=== PATIENT | male | born 1960 | race American Indian/Alaskan Native ===

== ENCOUNTER 2016-03-23 20:17 | Inpatient (IN) | payer OTHER ==
--- NOTE | 2016-03-23 20:42 | Emergency Department Report ---
Stated Complaint: STROKE SYMPTOMS Time Seen by Provider: 03/23/16 20:31 - HPI History of Present Illness: 60-year-old male comes in for complaint of slurred speech not able to get his thoughts together weakness since last night. Patient had a history of CVA 2015 which he recovered mostly with his functionality. Patient is awake he is alert and appropriate answering questions but not able to get the answers out totally he appears to have a hard time finding the words. He is accompanied by his caregiver that's helping with the history. - Exam Physical Exam: Patient is alert not very oriented slurred speech not able to follow commands tongue protrusion intact tongue side to side intact not able to do heel to morales right side is very weak. Romberg's intact not able to follow finger to nose MSE screening note: Focused history and physical exam performed. Due to findings the following was ordered: She's been evaluated by this provider. Ordered a CT of the brain without contrast [facility] ED Disposition for MSE Condition: Stable
[2016-03-23 21:13] LABS: Hematocrit 38.8 % (35.5-45.6); Hemoglobin 12.4 gm/dl (11.8-15.2); Mean Corpuscular HGB Conc 32 % (32-34); Mean Corpuscular Hemoglobin 24 pg (28-32); Mean Corpuscular Volume 74 fl (84-94); Platelet Count 200 K/mm3 (140-440); Red Blood Count 5.26 M/mm3 (3.65-5.03); Red Cell Distribution Width 20.1 % (13.2-15.2); White Blood Count 9.5 K/mm3 (4.5-11.0)
[2016-03-23 21:24] LABS: Anion Gap 19 mmol/L; Blood Urea Nitrogen 16 mg/dL (9-20); Calcium 9.1 mg/dL (8.4-10.2); Carbon Dioxide 24 mmol/L (22-30); Chloride 101.9 mmol/L (98-107); Glucose 99 mg/dL (75-100); Potassium 3.8 mmol/L (3.6-5.0); Sodium 141 mmol/L (137-145)
--- NOTE | 2016-03-23 22:16 | Cat Scan Report ---
FINAL REPORT PROCEDURE: CT HEAD/BRAIN WO CON TECHNIQUE: Computerized tomography of the head was performed without contrast material. HISTORY: slurred speech RUFF balance is off COMPARISON: 01/04/2016 FINDINGS: Skull and scalp: Normal. Paranasal sinuses: Normal. Ventricles and subarachnoid spaces: There is mild central and cortical atrophy.. Cerebrum: No evidence of hemorrhage, acute infarction or mass. There encephalomalacia in the right frontal and temporal lobes consistent with old infarct. There is no acute infarct. There is chronic deep white matter ischemic gliosis in the right hemisphere. Cerebellum and brainstem: No evidence of hemorrhage, acute infarction or mass. Vasculature: Normal. Comments: None. IMPRESSION: There are chronic changes as described. There is no acute abnormality.
[2016-03-24] MEDS ORDERED: BABY ASPIRIN PO ONE (04:03)
--- NOTE | 2016-03-24 04:03 | Emergency Department Report ---
HPI - General Chief Complaint: Neuro Symptoms/Deficit Time Seen by Provider: 03/23/16 20:31 - HPI HPI: This is a 55-year-old Afro-[place] male who presents to the emergency department with complaint of slurred speech, right-sided weakness, some aphasia and/or confusion since Tuesday evening. The patient's is bedside and said she noticed this and they thought about coming to the emergency department at that time but instead they decided to see if it would resolve and went to bed. When they woke up Tuesday and the patient still had the symptoms they came in to be seen. Patient has a history of hypertension and a previous history of CVA in March 2014. The stroke at that time left him with some left -sided weakness and memory loss but otherwise the patient is normally ambulatory. The right side has been the patient stronger side until this all began. He has not taken anything for symptoms prior to presentation. No recent travel or sick contacts at home. He has been complaining of a headache. He denies any chest pain, shortness of breath, fever, nausea or vomiting. ED Past Medical Hx - Past Medical History Hx Hypertension: Yes Hx CVA: Yes Hx Congestive Heart Failure: No Hx Diabetes: No Hx Asthma: No - Surgical History Additional Surgical History: carotid endarectomy - Social History Smoking Status: Unknown if ever smoked - Medications Home Medications: Home Medications Medication Instructions Recorded Confirmed Last Taken Type Lisinopril [Zestril TAB] 20 mg PO QDAY 01/04/16 03/24/16 03/23/16 History ED Review of Systems ROS: Stated complaint: STROKE SYMPTOMS Other details as noted in HPI Comment: All other systems reviewed and negative Constitutional: denies: chills, fever Eyes: denies: eye pain, eye discharge, vision change ENT: denies: ear pain, throat pain Respiratory: denies: cough, shortness of breath, wheezing Cardiovascular: denies: chest pain, palpitations Gastrointestinal: denies: abdominal pain, nausea, diarrhea Genitourinary: denies: urgency, dysuria Musculoskeletal: denies: back pain, joint swelling, arthralgia Skin: denies: rash, lesions Neurological: headache, weakness, numbness, confusion Physical Exam - Physical Exam Vital Signs: Vital Signs 03/23/16 20:23 Temperature 98.1 F Pulse Rate 83 Respiratory 18 Rate Blood Pressure 164/108 O2 Sat by Pulse 98 Oximetry Physical Exam: GENERAL: The patient is well-developed well-nourished. HEENT: Normocephalic. Atraumatic. Extraocular motions are intact. Patient has moist mucous membranes. Pupils equal reactive to light bilaterally. Patient has a subconjunctival hemorrhage to the right lateral eye. No facial asymmetry. Tongue is midline. NECK: Supple. Trachea is midline. CHEST/LUNGS: Clear to auscultation. There is no respiratory distress noted. HEART/CARDIOVASCULAR: Regular. There is no tachycardia. There is no gallop rub or murmur. ABDOMEN: Abdomen is soft, nontender. Patient has normal bowel sounds. There is no abdominal distention. SKIN: There is no rash. There is no diaphoresis. NEURO: The patient is awake, alert, and oriented. The patient is cooperative. Patient appears to have some aphasia. He appears to know what he wants to say but has trouble getting out and appears frustrated by this. There is right upper extremity weakness when compared to the left. There is lower right extremity weakness when compared to the left. There is a mild right upper extremity pronator drift. MUSCULOSKELETAL: There is no tenderness or deformity. There is no evidence of acute injury. ED Course Vital Signs 03/23/16 20:23 Temperature 98.1 F Pulse Rate 83 Respiratory 18 Rate Blood Pressure 164/108 O2 Sat by Pulse 98 Oximetry ED Medical Decision Making - Lab Data Result diagrams: 03/23/16 20:54 03/23/16 20:54 - EKG Data -: EKG Interpreted by Wi EKG shows normal: sinus rhythm, axis, intervals, QRS complexes (LVH), ST-T waves (T wave inversions to the inferior and lateral leads) Rate: normal - EKG Data When compared to previous EKG there are: changes noted (new t wave inversions to the lateral leads) Interpretation: LVH (and T wave inversions to the inferior and lateral leads. ) - Radiology Data Radiology results: report reviewed CT of the head without contrast shows chronic changes but no acute abnormalities. There is encephalomalacia in the right frontal and temporal lobes consistent with old infarct. No acute infarct seen. There is chronic deep white matter ischemic gliosis in the right hemisphere. - Medical Decision Making 55-year-old male presents the emergency department with complaint of right- sided weakness, aphasia and slurred speech that began Tuesday evening. Patient did not come in until about 12 hours or so later and therefore is not a TPA candidate. On physical exam the patient does display some right-sided weakness when compared to the left side, some aphasia and some slurred speech. The patient appears frustrated as he feels like he knows what he wants to say but cannot get it out appropriately. There is no facial asymmetry. A CT of the head did not show any acute ischemic changes, brain bleed or any acute process but does show his previous right-sided infarcts. Patient also presents with some hypertensive urgency. He was given some hydralazine and his come down to a more reasonable level. Patient is labs do not show any significant abnormalities or at least any etiology of the patient's symptoms. EKG does not show any signs of ST elevation NC or dysrhythmia. Patient will be admitted to the hospital for further evaluation and has been accepted for admission by the hospitalist, Dr Aburto. - Differential Diagnosis CVA, TIA, Hypertensive Crisis, NC Critical Care Time: No Critical care attestation.: If time is entered above; I have spent that time in minutes in the direct care of this critically ill patient, excluding procedure time. ED Disposition Clinical Impression: Hypertensive urgency, Right sided weakness, Aphasia CVA (cerebral vascular accident) Qualifiers: CVA mechanism: unspecified Qualified Code(s): I63.9 - Cerebral infarction, unspecified Disposition: OP ADMITTED IP TO THIS HOSP Is pt being admited?: Yes Condition: Stable Referrals: PRIMARY CARE, [Primary Care Provider] - 3-5 Days Time of Disposition: 05:23
[2016-03-24 04:38] LABS: Alanine Aminotransferase 23 units/L (7-56); Albumin 4.1 g/dL (3.9-5); Albumin/Globulin Ratio 1.3 %; Alkaline Phosphatase 75 units/L (35-129); Bilirubin,Total 0.3 mg/dL (0.1-1.2); Creatine Kinase 103 units/L (55-170); Total Protein 7.3 g/dL (6.3-8.2)
[2016-03-24] MEDS ORDERED: APRESOLINE IV ONE (04:44)
[2016-03-24 04:55] LABS: Bilirubin,Direct < 0.2 mg/dL (0-0.2); Bilirubin,Indirect 0.1 mg/dL
[2016-03-24 06:48] LABS: Urine Drugs of Abuse Note Disclamer
[2016-03-24 07:05] LABS: Bilirubin,Urine NEG (Negative); Blood,Urine NEG (Negative); Ketones,Urine TR mg/dL (Negative); Leukocyte Esterase,Urine NEG (Negative); Mucus,Urine 2+ /HPF; Nitrite,Urine NEG (Negative); Protein,Urine <15 mg/dL mg/dL (Negative)
--- NOTE | 2016-03-24 08:53 | History and Physical Report ---
History of Present Illness Date of examination: 03/24/16 Date of admission: / Chief complaint: Left sided weakness for 1 week History of present illness: patient is 55-year-old with history of hypertension and previous stroke. He presents with right sided weakness and slurred speech for 1 day. On questioning he states he did not come earlier because he thought it would go away by itself. Patient denies any chest pain or shortness of breath. He has a history of previous stroke with residual left-sided weakness. In emergency department a CT head was done was negative for acute stroke. He is being admitted for further work up and management Past History Past Medical History: hypertension, stroke Past Surgical History: Other (right carotid endarterectomy about 2 years ago) Social history: single, smoking (Smoker for many years quit smoking one month ago), alcohol abuse (quit alcohol), full code Family history: hypertension Medications and Allergies Allergies Allergy/AdvReac Type Severity Reaction Status Date / Time No Known Allergies Allergy Unverified 08/25/15 13:41 Home Medications Medication Instructions Recorded Confirmed Last Taken Type Lisinopril [Zestril TAB] 20 mg PO QDAY 01/04/16 03/24/16 03/23/16 History Review of Systems All systems: negative (no chest pain, no headaches, no difficulty in swallowing , no change in speech,. All other systems reviewed and are negative) Exam - Constitutional Vitals: Temp Pulse Resp BP Pulse Ox 98.1 F 97 H 16 140/77 99 03/23/16 20:23 03/24/16 08:02 03/24/16 08:00 03/24/16 08:00 03/24/16 08:00 General appearance: Present: no acute distress - EENT Eyes: Present: PERRL, EOM intact ENT: hearing intact, clear oral mucosa - Neck Neck: Present: supple, normal ROM - Respiratory Respiratory effort: normal Respiratory: bilateral: CTA, negative: diminished, rales, rhonchi, wheezing - Cardiovascular Rhythm: regular Heart Sounds: Present: S1 & S2 (S1 and S2 regular, no murmurs rubs or gallops) - Extremities Extremities: no ischemia, No edema, normal temperature, normal color - Abdominal General gastrointestinal: Present: soft, non-tender, non-distended, normal bowel sounds - Integumentary Integumentary: Present: clear, warm, dry - Musculoskeletal Musculoskeletal: strength equal bilaterally - Psychiatric Psychiatric: appropriate mood/affect, intact judgment & insight - Neurologic Neurologic: other (awake alert oriented 3, left upper extremity weakness 4 out of 5, dysarthria) Results - Labs CBC & Chem 7: 03/23/16 20:54 03/23/16 20:54 Labs: Abnormal lab results 03/23/16 03/24/16 Range/Units 20:54 03:53 RBC 5.26 H (3.65-5.03) M/mm3 MCV 74 L (84-94) fl MCH 24 L (28-32) pg RDW 20.1 H (13.2-15.2) % Lactic Acid 0.4 L (0.7-2.0) mmol/L Assessment and Plan Acute ischemic stroke. He presents with slurred speech right-sided weakness likely has acute stroke. Admit to telemetry. CT head is negative. MRI has been ordered to rule out acute stroke. Aspirin given in emergency department. Willl do stroke workup including carotid Dopplers, echocardiogram, MRI and MRA. Hypertensive urgency. Blood pressure was 200/98. This is now improved with hydralazine. Resume lisinopril he was taking at home. History of stroke with residual left-sided weakness. History of right carotid endarterectomy DVT prophylaxis with Lovenox Full CODE STATUS
[2016-03-24] MEDS ORDERED: TYLENOL PO PRN (09:02)
[2016-03-24] MEDS ORDERED: MILK OF MAGNESIA PO PRN (09:02)
[2016-03-24] MEDS ORDERED: SODIUM CHLORIDE FLUSH SYRINGE 10 ML IV PRN (09:02)
[2016-03-24] MEDS ORDERED: DULCOLAX PR PRN (09:02)
[2016-03-24] MEDS ORDERED: ZOFRAN IV PRN (09:02)
--- NOTE | 2016-03-24 09:43 | Admit Criteria Form ---
Admission Criteria Documentation: STROKE: ISCHEMIC Clinical Indications for Admission to Inpatient Care (Place 'X' for any and all applicable criteria): Admission is indicated for ANY ONE of the following(1)(2)(3)(4): [X ]I. Acute stroke Extended stay beyond goal length of stay may be needed for(1)(2) [ ]a) Major deficit or clinical deterioration [ ]b) Hospital-acquired infection (eg, urinary tract infection, pneumonia) [ ]c) Embolic cause of stroke [ ]d) Venous thromboembolism(9) [ ]e) Seizures [ ]f) Bleeding (eg, cerebral) [ ]g) Increased intracranial pressure [ ]h) Comorbidities [ ]i) Surgical intervention The original [employer] content created by [employer] has been revised. The portions of the content which have been revised are identified through the use of italic text or in bold, and [facility] has neither reviewed nor approved the modified material. All other unmodified content is copyright [facility]. Please see references footnoted in the original [facility] edition 2016 Admission Criteria Met: Yes
[2016-03-24] MEDS ORDERED: ZESTRIL ONE ×2 (10:02→10:05)
[2016-03-24] MEDS: ZESTRIL PO SCH (10:08)
[2016-03-24] MEDS: LOVENOX SUB-Q SCH (17:54)
--- NOTE | 2016-03-24 20:04 | Magnetic Resonance Report ---
FINAL REPORT PROCEDURE: MRI brain without contrast. TECHNIQUE: Magnetic resonance imaging of the brain was performed without contrast material. HISTORY: Stroke. COMPARISON: CT head 03/23/2016. FINDINGS: There is motion artifact on many of the pulse sequences. There is some encephalomalacia in the right frontal and right temporal lobes. This is likely secondary to a previous stroke. There is mild cerebral atrophy. There is mild evidence of chronic ischemic white matter disease. There are no mass lesions. There is no intracranial hemorrhage. There are some curvilinear areas of restricted diffusion involving cortical sanchez matter. These are located posteriorly in the left frontal lobe and the left parietal lobe. There is a tiny amount of restricted diffusion in the cortex of the left temporal lobe. There is also some punctate restricted diffusion in the deep white matter of the left frontal lobe. These findings are consistent with small areas of acute ischemia. Clinical correlation is suggested. The mastoid air cells are clear. There is mild mucosal thickening in both maxillary sinuses. IMPRESSION: Probable old stroke in the right middle cerebral artery distribution. Small areas of acute infarction in the left frontal, parietal and temporal lobes as described.
--- NOTE | 2016-03-24 20:16 | Magnetic Resonance Report ---
FINAL REPORT PROCEDURE: Magnetic resonance angiogram of the head without contrast. TECHNIQUE: Axial 3-D [id number] MR angiography of the [place] of [place] and brain was performed. The source images were reconstructed in various views using maximum intensity projection. HISTORY: Stroke, right-sided weakness. COMPARISON: No prior studies are available for comparison. FINDINGS: Both distal internal carotid arteries are patent. Both middle cerebral arteries are patent. The A1 segment of the right anterior cerebral artery is not visible. The anterior communicating artery is patent and both anterior cerebral arteries fill through the left A1 segment. The left posterior communicating artery is patent. The right posterior communicating artery is not visible. Both distal vertebral arteries are patent. The right posterior inferior cerebellar artery is patent. The left PICA is not visible. The basilar artery is patent. The anterior inferior cerebellar arteries are not visible. Both superior cerebellar and both posterior cerebral arteries are patent. There are no signs of aneurysm disease. There is no definite vasculitis. There are no definite embolic occlusions. IMPRESSION: Patency of the major cerebral vessels. Absence of the right A1 segment. Nonvisualization of the left posterior inferior cerebellar artery and both anterior inferior cerebellar arteries.
[2016-03-25] MEDS: ZESTRIL PO SCH (10:04)
[2016-03-25] MEDS: ECOTRIN PO SCH (10:04)
[2016-03-25] MEDS: LOVENOX SUB-Q SCH (10:04)
--- NOTE | 2016-03-25 11:08 | Progress Note ---
Assessment and Plan Assessment and plan: 1. Acute ischemic CVA. He presents with slurred speech right-sided weakness. Cont. telemetry monitoring. CT head is negative. MRI pending. F/U carotid Dopplers, echocardiogram, MRI and MRA. Neuro consultation 2. Accelerated hypertension.patient Blood pressure was 200/98 in ER. This is now improved with hydralazine. Resume lisinopril he was taking at home. 3. History of stroke with residual left-sided weakness. 4. History of right carotid endarterectomy 5. DVT prophylaxis with Lovenox History Interval history: Patient still exhibits some residual weakness. No new complaints. Hospitalist Physical - Constitutional Vitals: Temp Pulse Resp BP Pulse Ox 98.0 F 62 18 159/73 98 03/25/16 08:58 03/25/16 08:58 03/25/16 08:58 03/25/16 08:58 03/25/16 08:58 General appearance: Present: no acute distress - EENT Eyes: Present: PERRL, EOM intact ENT: hearing intact, clear oral mucosa, dentition normal - Neck Neck: Present: supple, normal ROM - Respiratory Respiratory effort: normal Respiratory: bilateral: CTA - Cardiovascular Rhythm: regular Heart Sounds: Present: S1 & S2. Absent: gallop, rub - Extremities Extremities: no ischemia, No edema, Full ROM - Abdominal General gastrointestinal: soft, non-tender, non-distended, normal bowel sounds - Integumentary Integumentary: Present: clear, warm, dry - Neurologic Neurologic: CNII-XII intact, moves all extremities, other (right sided weakness) Results - Labs CBC & Chem 7: 03/23/16 20:54 03/23/16 20:54 Labs: Laboratory Last Values WBC 9.5 K/mm3 (4.5-11.0) 03/23/16 20:54 RBC 5.26 M/mm3 (3.65-5.03) H 03/23/16 20:54 Hgb 12.4 gm/dl (11.8-15.2) 03/23/16 20:54 Hct 38.8 % (35.5-45.6) 03/23/16 20:54 MCV 74 fl (84-94) L 03/23/16 20:54 MCH 24 pg (28-32) L 03/23/16 20:54 MCHC 32 % (32-34) 03/23/16 20:54 RDW 20.1 % (13.2-15.2) H 03/23/16 20:54 Plt Count 200 K/mm3 (140-440) 03/23/16 20:54 Sodium 141 mmol/L (137-145) 03/23/16 20:54 Potassium 3.8 mmol/L (3.6-5.0) 03/23/16 20:54 Chloride 101.9 mmol/L (98-107) 03/23/16 20:54 Carbon Dioxide 24 mmol/L (22-30) 03/23/16 20:54 Anion Gap 19 mmol/L 03/23/16 20:54 BUN 16 mg/dL (9-20) 03/23/16 20:54 Creatinine 1.0 mg/dL (0.8-1.5) 03/23/16 20:54 Estimated GFR > 60 ml/min 03/23/16 20:54 BUN/Creatinine Ratio 16.00 % 03/23/16 20:54 Glucose 99 mg/dL (75-100) 03/23/16 20:54 Lactic Acid 0.4 mmol/L (0.7-2.0) L 03/24/16 03:53 Calcium 9.1 mg/dL (8.4-10.2) 03/23/16 20:54 Total Bilirubin 0.3 mg/dL (0.1-1.2) 03/24/16 03:53 Direct Bilirubin < 0.2 mg/dL (0-0.2) 03/24/16 03:53 Indirect Bilirubin 0.1 mg/dL 03/24/16 03:53 AST 17 units/L (5-40) 03/24/16 03:53 ALT 23 units/L (7-56) 03/24/16 03:53 Alkaline Phosphatase 75 units/L (35-129) 03/24/16 03:53 Total Creatine Kinase 103 units/L (55-170) 03/24/16 03:53 Troponin T < 0.010 ng/mL (0.00-0.029) 03/24/16 09:33 Total Protein 7.3 g/dL (6.3-8.2) 03/24/16 03:53 Albumin 4.1 g/dL (3.9-5) 03/24/16 03:53 Albumin/Globulin Ratio 1.3 % 03/24/16 03:53 Triglycerides 58 mg/dL (2-149) 03/25/16 05:14 Cholesterol 162 mg/dL (50-199) 03/25/16 05:14 LDL Cholesterol Direct 116 mg/dL (50-130) 03/25/16 05:14 HDL Cholesterol 35 mg/dL (40-59) L 03/25/16 05:14 Cholesterol/HDL Ratio 4.62 % 03/25/16 05:14 TSH 3.020 mlU/mL (0.270-4.200) 03/24/16 03:53 Urine Color Yellow (Yellow) 03/24/16 06:14 Urine Turbidity Clear (Clear) 03/24/16 06:14 Urine pH 6.0 (5.0-7.0) 03/24/16 06:14 Ur Specific [place] 1.023 (1.003-1.030) 03/24/16 06:14 Urine Protein <15 mg/dl mg/dL (Negative) 03/24/16 06:14 Urine Glucose (UA) Neg mg/dL (Negative) 03/24/16 06:14 Urine Ketones Tr mg/dL (Negative) 03/24/16 06:14 Urine Blood Neg (Negative) 03/24/16 06:14 Urine Nitrite Neg (Negative) 03/24/16 06:14 Urine Bilirubin Neg (Negative) 03/24/16 06:14 Urine Urobilinogen 2.0 mg/dL (<2.0) 03/24/16 06:14 Ur Leukocyte Esterase Neg (Negative) 03/24/16 06:14 Urine WBC (Auto) 2.0 /HPF (0.0-6.0) 03/24/16 06:14 Urine RBC (Auto) 2.0 /HPF (0.0-6.0) 03/24/16 06:14 Urine Mucus 2+ /HPF 03/24/16 06:14 Urine Opiates Screen Presumptive negative 03/24/16 06:14 Urine Methadone Screen Presumptive negative 03/24/16 06:14 Ur Barbiturates Screen Presumptive negative 03/24/16 06:14 Ur Phencyclidine Scrn Presumptive negative 03/24/16 06:14 Ur Amphetamines Screen Presumptive negative 03/24/16 06:14 U Benzodiazepines Scrn Presumptive negative 03/24/16 06:14 Urine Cocaine Screen Presumptive negative 03/24/16 06:14 U Marijuana (THC) Screen Presumptive negative 03/24/16 06:14 Drugs of Abuse Note Disclamer 03/24/16 06:14 Plasma/Serum Alcohol < 0.01 gm% (0-0.07) 03/24/16 03:53
--- NOTE | 2016-03-25 13:13 | Echocardiography Report ---
Transthoracic Echocardiogram Indication: CVA BP: 117/67 HR: 56 Findings Procedure Info: The study quality is good. Left Ventricle: The left ventricular chamber size is normal. Mild to moderate concentric left ventricular hypertrophy is observed. Global left ventricular systolic function is normal. The estimated ejection fraction is 55-60%. Left Atrium: The left atrial chamber size is normal. Right Ventricle: The right ventricle wall thickness is mildly increased. The right ventricular cavity size is normal. The right ventricular global systolic function is normal. Right Atrium: The right atrial cavity size is normal. The interatrial septum bowed toward the left. A patent foramen ovale is not demonstrated with color doppler and agitated saline contrast. Aortic Valve: The aortic valve is trileaflet. The aortic valve leaflets are mildly thickened. There is no evidence of aortic regurgitation. There is no evidence of aortic stenosis. Mitral Valve: The mitral valve leaflets appear myxomatous. The mitral valve leaflets are mildly thickened. There is trace of mitral regurgitation. There is no evidence of mitral stenosis. Tricuspid Valve: The tricuspid valve leaflets are normal. There is mild tricuspid regurgitation. The right ventricular systolic pressure is calculated at 29 mmHg. There is evidence of borderline pulmonary hypertension. There is no tricuspid stenosis. Pulmonic Valve: The pulmonic valve is not well visualized. The pulmonic valve appears normal. There is no evidence of pulmonic regurgitation. There is no pulmonic stenosis. Pericardium: There is no pericardial effusion. No pleural effusion is present. Aorta: The aortic root is not well visualized. There is no dilatation of the aortic root. Pulmonary Artery: The main pulmonary artery is not well visualized. Venous: The inferior vena cava appears normal in size. There is a greater than 50% respiratory change in the inferior vena cava dimension. Measurements Chambers MM Name Value Normal Range IVSd (MM) 1.02 cm (0.6 - 1.1) LVPWd (MM) 1.32 cm (0.6 - 1.1) IVS:LVPW ratio 0.77 ratio - LVIDd (MM) 5.22 cm (3.7 - 5.6) LVIDs (MM) 3.06 cm (2 - 2.8) LV FS (Teichholz) (MM) 41.4 % - LV FS (cube) (MM) 41.4 % - EF Teichholz (MM) 72 % - Ao root diameter (MM) 3 cm (2 - 3.7) LA dimension (AP) MM 4 cm (1.9 - 4) LA:Ao ratio (MM) 1.33 ratio - AV cusp separation (MM) 1.9 cm (1.5 - 2.6) Chambers 2D Name Value Normal Range IVSd (2D) 1.18 cm (0.6 - 1.1) LVPWd 1.5 cm - LVPWd (2D) 1.51 cm (0.6 - 1.1) IVS:LVPW ratio (2D) 0.78 ratio - LVIDd 4.2 cm - LVIDs 2.4 cm - LVIDd (2D) 4.16 cm (3.7 - 5.6) LVIDs (2D) 2.43 cm (2 - 3.8) LV FS (Teichholz) (2D) 41.6 % - LV FS (cube) (2D) 41.6 % - LV EF (2D) 72 % - EF Teichholz (2D) 72.9 % - LA dimension 3.3 cm - Ao root diameter (2D) 3.2 cm (2 - 3.7) LA dimension (AP) 2D 3.3 cm (1.9 - 4) LA:Ao ratio (2D) 1.03 ratio - Volumes/Mass Name Value Normal Range LA ESV SP 4CH (MOD) 49 ml - LV EDV SP 4CH (MOD) 102 ml - LV ESV SP 4CH (MOD) 42 ml - EF SP 4CH (MOD) 59 % - Diastolic/Systolic Function Name Value Normal Range MV E-wave Vmax 0.81 m/sec - MV deceleration time 225 msec - MV A-wave Vmax 0.6 m/sec - MV E:A ratio 1.4 ratio - LV septal e' Vmax 0.06 m/sec - LV lateral e' Vmax 0.1 m/sec - LV E:e' septal ratio 12.6 ratio - LV E:e' lateral ratio 7.9 ratio - Aortic Valve Name Value Normal Range AV VTI 28.7 cm - AV mean gradient 3 mmHg - LVOT diameter 1.8 cm - LVOT Vmax 1.1 m/sec - LVOT peak gradient 5 mmHg - Tricuspid Valve Name Value Normal Range TR Vmax 2.54 m/sec - TR peak gradient 26 mmHg - RAP 3 mmHg - RVSP 29 mmHg - Pulmonic Valve/Qp:Qs Name Value Normal Range PV Vmax 0.66 m/sec - PV peak gradient 2 mmHg - PV acceleration time 144 msec -
[2016-03-26] MEDS: ECOTRIN PO SCH (10:52)
[2016-03-26] MEDS: LOVENOX SUB-Q SCH (10:53)
[2016-03-26] MEDS: ZESTRIL PO SCH (10:53)
--- NOTE | 2016-03-26 12:00 | Progress Note ---
Assessment and Plan Assessment and plan: 1. Acute ischemic CVA. He presents with slurred speech right-sided weakness. Cont. telemetry monitoring. CT head is negative. MRI reveals small areas of acute infarction in the left frontal, parietal and temporal lobes. Echocardiogram reveals mild to moderate concentric left ventricular hypertrophy and EF of 55-60%. Global left ventricular systolic function is normal. Carotid ultrasound pending. Await Neuro consultation. PT/OT. Possible rehabilitation placement. 2. Accelerated hypertension. The patient's blood pressure was 200/98 in ER. This is now improved with hydralazine. Continue lisinopril he was taking at home. 3. History of stroke with residual left-sided weakness. 4. History of right carotid endarterectomy 5. DVT prophylaxis with Lovenox History Interval history: Patient still exhibits some residual weakness. No new complaints. Hospitalist Physical - Constitutional Vitals: Temp Pulse Resp BP Pulse Ox 97.9 F 60 16 131/90 99 03/26/16 08:22 03/26/16 10:53 03/26/16 10:00 03/26/16 10:53 03/26/16 10:00 General appearance: Present: no acute distress - EENT Eyes: Present: PERRL, EOM intact ENT: hearing intact, clear oral mucosa, dentition normal - Neck Neck: Present: supple, normal ROM - Respiratory Respiratory effort: normal Respiratory: bilateral: CTA - Cardiovascular Rhythm: regular Heart Sounds: Present: S1 & S2. Absent: gallop, rub - Extremities Extremities: no ischemia, No edema, Full ROM - Abdominal General gastrointestinal: soft, non-tender, non-distended, normal bowel sounds - Integumentary Integumentary: Present: clear, warm, dry - Neurologic Neurologic: CNII-XII intact, moves all extremities Results - Labs CBC & Chem 7: 03/23/16 20:54 03/23/16 20:54 Labs: Laboratory Last Values WBC 9.5 K/mm3 (4.5-11.0) 03/23/16 20:54 RBC 5.26 M/mm3 (3.65-5.03) H 03/23/16 20:54 Hgb 12.4 gm/dl (11.8-15.2) 03/23/16 20:54 Hct 38.8 % (35.5-45.6) 03/23/16 20:54 MCV 74 fl (84-94) L 03/23/16 20:54 MCH 24 pg (28-32) L 03/23/16 20:54 MCHC 32 % (32-34) 03/23/16 20:54 RDW 20.1 % (13.2-15.2) H 03/23/16 20:54 Plt Count 200 K/mm3 (140-440) 03/23/16 20:54 Sodium 141 mmol/L (137-145) 03/23/16 20:54 Potassium 3.8 mmol/L (3.6-5.0) 03/23/16 20:54 Chloride 101.9 mmol/L (98-107) 03/23/16 20:54 Carbon Dioxide 24 mmol/L (22-30) 03/23/16 20:54 Anion Gap 19 mmol/L 03/23/16 20:54 BUN 16 mg/dL (9-20) 03/23/16 20:54 Creatinine 1.0 mg/dL (0.8-1.5) 03/23/16 20:54 Estimated GFR > 60 ml/min 03/23/16 20:54 BUN/Creatinine Ratio 16.00 % 03/23/16 20:54 Glucose 99 mg/dL (75-100) 03/23/16 20:54 Lactic Acid 0.4 mmol/L (0.7-2.0) L 03/24/16 03:53 Calcium 9.1 mg/dL (8.4-10.2) 03/23/16 20:54 Total Bilirubin 0.3 mg/dL (0.1-1.2) 03/24/16 03:53 Direct Bilirubin < 0.2 mg/dL (0-0.2) 03/24/16 03:53 Indirect Bilirubin 0.1 mg/dL 03/24/16 03:53 AST 17 units/L (5-40) 03/24/16 03:53 ALT 23 units/L (7-56) 03/24/16 03:53 Alkaline Phosphatase 75 units/L (35-129) 03/24/16 03:53 Total Creatine Kinase 103 units/L (55-170) 03/24/16 03:53 Troponin T < 0.010 ng/mL (0.00-0.029) 03/24/16 09:33 Total Protein 7.3 g/dL (6.3-8.2) 03/24/16 03:53 Albumin 4.1 g/dL (3.9-5) 03/24/16 03:53 Albumin/Globulin Ratio 1.3 % 03/24/16 03:53 Triglycerides 58 mg/dL (2-149) 03/25/16 05:14 Cholesterol 162 mg/dL (50-199) 03/25/16 05:14 LDL Cholesterol Direct 116 mg/dL (50-130) 03/25/16 05:14 HDL Cholesterol 35 mg/dL (40-59) L 03/25/16 05:14 Cholesterol/HDL Ratio 4.62 % 03/25/16 05:14 TSH 3.020 mlU/mL (0.270-4.200) 03/24/16 03:53 Urine Color Yellow (Yellow) 03/24/16 06:14 Urine Turbidity Clear (Clear) 03/24/16 06:14 Urine pH 6.0 (5.0-7.0) 03/24/16 06:14 Ur Specific [place] 1.023 (1.003-1.030) 03/24/16 06:14 Urine Protein <15 mg/dl mg/dL (Negative) 03/24/16 06:14 Urine Glucose (UA) Neg mg/dL (Negative) 03/24/16 06:14 Urine Ketones Tr mg/dL (Negative) 03/24/16 06:14 Urine Blood Neg (Negative) 03/24/16 06:14 Urine Nitrite Neg (Negative) 03/24/16 06:14 Urine Bilirubin Neg (Negative) 03/24/16 06:14 Urine Urobilinogen 2.0 mg/dL (<2.0) 03/24/16 06:14 Ur Leukocyte Esterase Neg (Negative) 03/24/16 06:14 Urine WBC (Auto) 2.0 /HPF (0.0-6.0) 03/24/16 06:14 Urine RBC (Auto) 2.0 /HPF (0.0-6.0) 03/24/16 06:14 Urine Mucus 2+ /HPF 03/24/16 06:14 Urine Opiates Screen Presumptive negative 03/24/16 06:14 Urine Methadone Screen Presumptive negative 03/24/16 06:14 Ur Barbiturates Screen Presumptive negative 03/24/16 06:14 Ur Phencyclidine Scrn Presumptive negative 03/24/16 06:14 Ur Amphetamines Screen Presumptive negative 03/24/16 06:14 U Benzodiazepines Scrn Presumptive negative 03/24/16 06:14 Urine Cocaine Screen Presumptive negative 03/24/16 06:14 U Marijuana (THC) Screen Presumptive negative 03/24/16 06:14 Drugs of Abuse Note Disclamer 03/24/16 06:14 Plasma/Serum Alcohol < 0.01 gm% (0-0.07) 03/24/16 03:53
--- NOTE | 2016-03-26 15:14 | Consultation ---
History of Present Illness - Reason for Consult Consult date: 03/26/16 stroke - History of Present Illness patient is seen and asswessed there is evidence of left arm and face weakness suspect ischemic stroke due to HTN rec rehab and medical therapy Past History Past Medical History: hypertension, stroke Past Surgical History: Other (right carotid endarterectomy about 2 years ago) Social history: single, smoking (Smoker for many years quit smoking one month ago), alcohol abuse (quit alcohol), full code Family history: hypertension Medications and Allergies Allergies Allergy/AdvReac Type Severity Reaction Status Date / Time No Known Allergies Allergy Unverified 08/25/15 13:41 Home Medications Medication Instructions Recorded Confirmed Last Taken Type Lisinopril [Zestril TAB] 20 mg PO QDAY 01/04/16 03/24/16 03/23/16 History Active Meds: Active Medications Acetaminophen (Tylenol) 650 mg PO Q4H PRN PRN Reason: Pain, Mild (1-3) Aspirin (Ecotrin) 325 mg PO QDAY [facility] Last Admin: 03/26/16 10:52 Dose: 325 mg Bisacodyl (Dulcolax) 10 mg MD QDAY PRN PRN Reason: Constipation Enoxaparin Sodium (Lovenox) 40 mg SUB-Q QDAY [facility] Last Admin: 03/26/16 10:53 Dose: 40 mg Lisinopril (Zestril) 20 mg PO QDAY [facility] Last Admin: 03/26/16 10:53 Dose: 20 mg Magnesium Hydroxide (Milk Of Magnesia) 30 ml PO Q4H PRN PRN Reason: Constipation Ondansetron HCl (Zofran) 4 mg IV Q8H PRN PRN Reason: [place] Sodium Chloride (Sodium Chloride Flush Syringe 10 Ml) 10 ml IV PRN PRN PRN Reason: LINE FLUSH Exam - Constitutional Vitals: Temp Pulse Resp BP Pulse Ox 98.0 F 62 16 196/80 99 03/26/16 12:19 03/26/16 12:19 03/26/16 12:19 03/26/16 12:19 03/26/16 12:19 Results - Labs CBC & Chem 7: 03/23/16 20:54 03/23/16 20:54
[2016-03-27] MEDS: LOVENOX SUB-Q SCH (10:17)
[2016-03-27] MEDS: ECOTRIN PO SCH (10:17)
[2016-03-27] MEDS: ZESTRIL PO SCH (10:18)
--- NOTE | 2016-03-27 10:22 | Progress Note ---
Assessment and Plan Assessment and plan: 1. Acute ischemic CVA. He presents with slurred speech right-sided weakness. Cont. telemetry monitoring. CT head is negative. MRI reveals small areas of acute infarction in the left frontal, parietal and temporal lobes. Echocardiogram reveals mild to moderate concentric left ventricular hypertrophy and EF of 55-60%. Global left ventricular systolic function is normal. Carotid ultrasound negative. Neurology following. PT/OT recommends discharge home with no needs. 2. Accelerated hypertension. The patient's blood pressure still remains elevated. Increase his lisinopril to 40 mg daily. Add Norvasc 5 mg daily. 3. History of stroke with residual left-sided weakness. 4. History of right carotid endarterectomy 5. DVT prophylaxis with Lovenox 6. Dysuria. Check urinalysis. 7. Disposition. Anticipate discharge in a.m. blood pressure is controlled. History Interval history: Patient still exhibits some residual weakness. Patient complains of dysuria and frequency. Hospitalist Physical - Constitutional Vitals: Temp Pulse Resp BP Pulse Ox 97.6 F 56 L 18 194/97 100 03/27/16 08:00 03/27/16 08:00 03/27/16 08:00 03/27/16 08:00 03/27/16 08:00 General appearance: Present: no acute distress - EENT Eyes: Present: PERRL, EOM intact ENT: hearing intact, clear oral mucosa, dentition normal - Neck Neck: Present: supple, normal ROM - Respiratory Respiratory effort: normal Respiratory: bilateral: CTA - Cardiovascular Rhythm: regular Heart Sounds: Present: S1 & S2. Absent: gallop, rub - Extremities Extremities: no ischemia, No edema, Full ROM - Abdominal General gastrointestinal: soft, non-tender, non-distended, normal bowel sounds - Integumentary Integumentary: Present: clear, warm, dry - Neurologic Neurologic: CNII-XII intact, moves all extremities Results - Labs CBC & Chem 7: 03/23/16 20:54 03/23/16 20:54 Labs: Laboratory Last Values WBC 9.5 K/mm3 (4.5-11.0) 03/23/16 20:54 RBC 5.26 M/mm3 (3.65-5.03) H 03/23/16 20:54 Hgb 12.4 gm/dl (11.8-15.2) 03/23/16 20:54 Hct 38.8 % (35.5-45.6) 03/23/16 20:54 MCV 74 fl (84-94) L 03/23/16 20:54 MCH 24 pg (28-32) L 03/23/16 20:54 MCHC 32 % (32-34) 03/23/16 20:54 RDW 20.1 % (13.2-15.2) H 03/23/16 20:54 Plt Count 200 K/mm3 (140-440) 03/23/16 20:54 Sodium 141 mmol/L (137-145) 03/23/16 20:54 Potassium 3.8 mmol/L (3.6-5.0) 03/23/16 20:54 Chloride 101.9 mmol/L (98-107) 03/23/16 20:54 Carbon Dioxide 24 mmol/L (22-30) 03/23/16 20:54 Anion Gap 19 mmol/L 03/23/16 20:54 BUN 16 mg/dL (9-20) 03/23/16 20:54 Creatinine 1.0 mg/dL (0.8-1.5) 03/23/16 20:54 Estimated GFR > 60 ml/min 03/23/16 20:54 BUN/Creatinine Ratio 16.00 % 03/23/16 20:54 Glucose 99 mg/dL (75-100) 03/23/16 20:54 Lactic Acid 0.4 mmol/L (0.7-2.0) L 03/24/16 03:53 Calcium 9.1 mg/dL (8.4-10.2) 03/23/16 20:54 Total Bilirubin 0.3 mg/dL (0.1-1.2) 03/24/16 03:53 Direct Bilirubin < 0.2 mg/dL (0-0.2) 03/24/16 03:53 Indirect Bilirubin 0.1 mg/dL 03/24/16 03:53 AST 17 units/L (5-40) 03/24/16 03:53 ALT 23 units/L (7-56) 03/24/16 03:53 Alkaline Phosphatase 75 units/L (35-129) 03/24/16 03:53 Total Creatine Kinase 103 units/L (55-170) 03/24/16 03:53 Troponin T < 0.010 ng/mL (0.00-0.029) 03/24/16 09:33 Total Protein 7.3 g/dL (6.3-8.2) 03/24/16 03:53 Albumin 4.1 g/dL (3.9-5) 03/24/16 03:53 Albumin/Globulin Ratio 1.3 % 03/24/16 03:53 Triglycerides 58 mg/dL (2-149) 03/25/16 05:14 Cholesterol 162 mg/dL (50-199) 03/25/16 05:14 LDL Cholesterol Direct 116 mg/dL (50-130) 03/25/16 05:14 HDL Cholesterol 35 mg/dL (40-59) L 03/25/16 05:14 Cholesterol/HDL Ratio 4.62 % 03/25/16 05:14 TSH 3.020 mlU/mL (0.270-4.200) 03/24/16 03:53 Urine Color Yellow (Yellow) 03/24/16 06:14 Urine Turbidity Clear (Clear) 03/24/16 06:14 Urine pH 6.0 (5.0-7.0) 03/24/16 06:14 Ur Specific [place] 1.023 (1.003-1.030) 03/24/16 06:14 Urine Protein <15 mg/dl mg/dL (Negative) 03/24/16 06:14 Urine Glucose (UA) Neg mg/dL (Negative) 03/24/16 06:14 Urine Ketones Tr mg/dL (Negative) 03/24/16 06:14 Urine Blood Neg (Negative) 03/24/16 06:14 Urine Nitrite Neg (Negative) 03/24/16 06:14 Urine Bilirubin Neg (Negative) 03/24/16 06:14 Urine Urobilinogen 2.0 mg/dL (<2.0) 03/24/16 06:14 Ur Leukocyte Esterase Neg (Negative) 03/24/16 06:14 Urine WBC (Auto) 2.0 /HPF (0.0-6.0) 03/24/16 06:14 Urine RBC (Auto) 2.0 /HPF (0.0-6.0) 03/24/16 06:14 Urine Mucus 2+ /HPF 03/24/16 06:14 Urine Opiates Screen Presumptive negative 03/24/16 06:14 Urine Methadone Screen Presumptive negative 03/24/16 06:14 Ur Barbiturates Screen Presumptive negative 03/24/16 06:14 Ur Phencyclidine Scrn Presumptive negative 03/24/16 06:14 Ur Amphetamines Screen Presumptive negative 03/24/16 06:14 U Benzodiazepines Scrn Presumptive negative 03/24/16 06:14 Urine Cocaine Screen Presumptive negative 03/24/16 06:14 U Marijuana (THC) Screen Presumptive negative 03/24/16 06:14 Drugs of Abuse Note Disclamer 03/24/16 06:14 Plasma/Serum Alcohol < 0.01 gm% (0-0.07) 03/24/16 03:53
[2016-03-27 11:23] LABS: Bilirubin,Urine NEG (Negative); Blood,Urine NEG (Negative); Ketones,Urine NEG (Negative); Leukocyte Esterase,Urine NEG (Negative); Mucus,Urine FEW /HPF; Nitrite,Urine NEG (Negative); Protein,Urine <15 mg/dL mg/dL (Negative); RBC,Urine < 1.0 /HPF (0.0-6.0); Urobilinogen,Urine < 2.0 mg/dL (<2.0)
[2016-03-27 11:28] LABS: WBC,Urine < 1.0 /HPF (0.0-6.0)
[2016-03-28] MEDS: ECOTRIN PO SCH (09:10)
[2016-03-28] MEDS: LOVENOX SUB-Q SCH (09:10)
[2016-03-28] MEDS: ZESTRIL PO SCH (09:11)
[2016-03-28] MEDS ORDERED: NORVASC PO SCH (10:00)
--- NOTE | 2016-03-28 11:27 | Progress Note ---
Assessment and Plan Assessment and plan: 1. Acute ischemic CVA. He presented with slurred speech and right-sided weakness. Cont. telemetry monitoring. CT head is negative. MRI reveals small areas of acute infarction in the left frontal, parietal and temporal lobes. Echocardiogram reveals mild to moderate concentric left ventricular hypertrophy and EF of 55-60%. Global left ventricular systolic function is normal. Carotid ultrasound negative. Neurology is recommending for rehab placement. 2. Accelerated hypertension. Patient's lisinopril was increased and Norvasc added yesterday. Patient actually hypotensive currently. D/c Norvasc. 3. History of stroke with residual left-sided weakness. 4. History of right carotid endarterectomy 5. DVT prophylaxis with Lovenox 6. Dysuria. Check urinalysis. 7. Disposition. Neurology recommends rehabilitation placement. We will discuss with case management possibility of rehabilitation placement in a.m. History Interval history: Patient still exhibits some residual weakness. Patient complains of dysuria and frequency. Hospitalist Physical - Constitutional Vitals: Temp Pulse Resp BP Pulse Ox 98.2 F 87 20 85/56 97 03/28/16 08:15 03/28/16 09:11 03/28/16 08:18 03/28/16 09:11 03/28/16 08:18 General appearance: Present: no acute distress - EENT Eyes: Present: PERRL, EOM intact ENT: hearing intact, clear oral mucosa, dentition normal - Neck Neck: Present: supple, normal ROM - Respiratory Respiratory effort: normal Respiratory: bilateral: CTA - Cardiovascular Rhythm: regular Heart Sounds: Present: S1 & S2. Absent: gallop, rub - Extremities Extremities: no ischemia, No edema, Full ROM - Abdominal General gastrointestinal: soft, non-tender, non-distended, normal bowel sounds - Integumentary Integumentary: Present: clear, warm, dry - Neurologic Neurologic: CNII-XII intact, moves all extremities Results - Labs CBC & Chem 7: 03/23/16 20:54 03/23/16 20:54 Labs: Laboratory Last Values WBC 9.5 K/mm3 (4.5-11.0) 03/23/16 20:54 RBC 5.26 M/mm3 (3.65-5.03) H 03/23/16 20:54 Hgb 12.4 gm/dl (11.8-15.2) 03/23/16 20:54 Hct 38.8 % (35.5-45.6) 03/23/16 20:54 MCV 74 fl (84-94) L 03/23/16 20:54 MCH 24 pg (28-32) L 03/23/16 20:54 MCHC 32 % (32-34) 03/23/16 20:54 RDW 20.1 % (13.2-15.2) H 03/23/16 20:54 Plt Count 200 K/mm3 (140-440) 03/23/16 20:54 Sodium 141 mmol/L (137-145) 03/23/16 20:54 Potassium 3.8 mmol/L (3.6-5.0) 03/23/16 20:54 Chloride 101.9 mmol/L (98-107) 03/23/16 20:54 Carbon Dioxide 24 mmol/L (22-30) 03/23/16 20:54 Anion Gap 19 mmol/L 03/23/16 20:54 BUN 16 mg/dL (9-20) 03/23/16 20:54 Creatinine 1.0 mg/dL (0.8-1.5) 03/23/16 20:54 Estimated GFR > 60 ml/min 03/23/16 20:54 BUN/Creatinine Ratio 16.00 % 03/23/16 20:54 Glucose 99 mg/dL (75-100) 03/23/16 20:54 Lactic Acid 0.4 mmol/L (0.7-2.0) L 03/24/16 03:53 Calcium 9.1 mg/dL (8.4-10.2) 03/23/16 20:54 Total Bilirubin 0.3 mg/dL (0.1-1.2) 03/24/16 03:53 Direct Bilirubin < 0.2 mg/dL (0-0.2) 03/24/16 03:53 Indirect Bilirubin 0.1 mg/dL 03/24/16 03:53 AST 17 units/L (5-40) 03/24/16 03:53 ALT 23 units/L (7-56) 03/24/16 03:53 Alkaline Phosphatase 75 units/L (35-129) 03/24/16 03:53 Total Creatine Kinase 103 units/L (55-170) 03/24/16 03:53 Troponin T < 0.010 ng/mL (0.00-0.029) 03/24/16 09:33 Total Protein 7.3 g/dL (6.3-8.2) 03/24/16 03:53 Albumin 4.1 g/dL (3.9-5) 03/24/16 03:53 Albumin/Globulin Ratio 1.3 % 03/24/16 03:53 Triglycerides 58 mg/dL (2-149) 03/25/16 05:14 Cholesterol 162 mg/dL (50-199) 03/25/16 05:14 LDL Cholesterol Direct 116 mg/dL (50-130) 03/25/16 05:14 HDL Cholesterol 35 mg/dL (40-59) L 03/25/16 05:14 Cholesterol/HDL Ratio 4.62 % 03/25/16 05:14 TSH 3.020 mlU/mL (0.270-4.200) 03/24/16 03:53 Urine Color Yellow (Yellow) 03/27/16 10:54 Urine Turbidity Clear (Clear) 03/27/16 10:54 Urine pH 6.0 (5.0-7.0) 03/27/16 10:54 Ur Specific [place] 1.019 (1.003-1.030) 03/27/16 10:54 Urine Protein <15 mg/dl mg/dL (Negative) 03/27/16 10:54 Urine Glucose (UA) Neg mg/dL (Negative) 03/27/16 10:54 Urine Ketones Neg mg/dL (Negative) 03/27/16 10:54 Urine Blood Neg (Negative) 03/27/16 10:54 Urine Nitrite Neg (Negative) 03/27/16 10:54 Urine Bilirubin Neg (Negative) 03/27/16 10:54 Urine Urobilinogen < 2.0 mg/dL (<2.0) 03/27/16 10:54 Ur Leukocyte Esterase Neg (Negative) 03/27/16 10:54 Urine WBC (Auto) < 1.0 /HPF (0.0-6.0) 03/27/16 10:54 Urine RBC (Auto) < 1.0 /HPF (0.0-6.0) 03/27/16 10:54 Urine Mucus Few /HPF 03/27/16 10:54 Urine Opiates Screen Presumptive negative 03/24/16 06:14 Urine Methadone Screen Presumptive negative 03/24/16 06:14 Ur Barbiturates Screen Presumptive negative 03/24/16 06:14 Ur Phencyclidine Scrn Presumptive negative 03/24/16 06:14 Ur Amphetamines Screen Presumptive negative 03/24/16 06:14 U Benzodiazepines Scrn Presumptive negative 03/24/16 06:14 Urine Cocaine Screen Presumptive negative 03/24/16 06:14 U Marijuana (THC) Screen Presumptive negative 03/24/16 06:14 Drugs of Abuse Note Disclamer 03/24/16 06:14 Plasma/Serum Alcohol < 0.01 gm% (0-0.07) 03/24/16 03:53
[2016-03-29] MEDS ORDERED: APRESOLINE IV PRN (04:51)
--- NOTE | 2016-03-29 08:13 | Vascular Lab Report ---
CAROTID DUPLEX STUDY: RIGHT PSVEDV CCA PROX:[id number] CCA DIST:[id number] ICA PROX: 6615 ICA MID: 7527 ICA DIST: 7721 ECA: 58160 VERT: 87 21 LEFT PSVEDV CCA PROX:80901 CCA DIST:[id number] ICA PROX: 9621 ICA MID: 7622 ICA DIST:72904 ECA: 33455 VERT: 50 20 REASON FOR EXAM: Stroke. COMMENTS ON THE RIGHT: Doppler frequency analysis is consistent with 16 to 49 percent diameter reduction of the internal carotid artery. Minimal amount of plaque is seen. The common carotid artery is patent. The external carotid artery is patent. The vertebral artery has antegrade flow. COMMENTS ON THE LEFT: Doppler frequency analysis is consistent with 16 to 49 percent diameter reduction of the internal carotid artery. Minimal amount of plaque is seen. The common carotid artery is patent. The external carotid artery is patent. The vertebral artery has antegrade flow. IMPRESSION: Less than 50% diameter reduction in the internal carotid arteries bilaterally. Consider repeat carotid artery duplex in 12 months.
[2016-03-29] MEDS: ECOTRIN PO SCH (10:02)
[2016-03-29] MEDS: LOVENOX SUB-Q SCH (10:02)
[2016-03-29] MEDS: ZESTRIL PO SCH (10:02)
--- NOTE | 2016-03-29 11:05 | Discharge Summary ---
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 He presents with right sided weakness and slurred speech for 1 day. On questioning he states he did not come earlier because he thought it would go away by itself. Patient denies any chest pain or shortness of breath. He has a history of previous stroke with residual left-sided weakness. In emergency department a CT head was done was negative for acute stroke. An MRI of the brain showed small areas of acute infarct in the left frontal, parietal and temporal lobes with echocardiogram also showing concentric left ventricular hypertrophy. She was seen by neurology and rehabilitation was recommended to have physical therapy evaluation which showed independent ability to climb up and down stairs will need home PT and OT. Blood pressure was adjusted lisinopril increased to 40 mg daily. We did educate the patient on good blood pressure control. They will document BP and follow with PCP. Patient did have a complaint of foul-smelling urine urinalysis. Was negative patient did not demonstrate any fever and did not require any antibiotics at this point. 1 Disposition: STILL A PATIENT Time spent for discharge: 35 MINS - Discharge Diagnoses (1) Aphasia Status: Acute (2) CVA (cerebral vascular accident) Status: Acute Qualifiers: CVA mechanism: unspecified Qualified Code(s): I63.9 - Cerebral infarction, unspecified (3) Hypertensive urgency Status: Resolved (4) Anxiety Status: Chronic (5) Dyslipidemia Status: Chronic (6) Hemiparesis affecting left side as late effect of cerebrovascular accident Status: Acute Core Measure Documentation - Palliative Care Palliative Care/ Comfort Measures: Not Applicable - Core Measures Any of the following diagnoses?: stroke - VTE Discharge Requirements Deep Vein Thrombosis/Pulmonary Embolism Present on Admission: No - Stroke Discharge Requirements Statin for LDL = or >70 mg/dl on DC: Yes Anticoag for atrial fib/atrial flutter: Not Applicable Antithrombotic for ischemic stroke: Yes Exam - Physical Exam Narrative exam: VITAL SIGNS: Reviewed. GENERAL: The patient appeared well nourished and normally developed. Vital signs as documented. HEAD: No signs of head trauma. EYES: Pupils are equal. Extraocular motions intact. EARS: Hearing grossly intact. MOUTH: Oropharynx is normal. NECK: No adenopathy, no JVD. CHEST: Chest with clear breath sounds bilaterally. No wheezes, rales, or rhonchi. CARDIAC: Regular rate and rhythm. S1 and S2, without murmurs, gallops, or rubs. VASCULAR: No Edema. Peripheral pulses normal and equal in all extremities. ABDOMEN: Soft, without detectable tenderness. No sign of distention. No rebound or guarding, and no masses palpated. Bowel Sounds normal. MUSCULOSKELETAL: Good range of motion of all major joints. Extremities without clubbing, cyanosis or edema. NEUROLOGIC EXAM: Alert and oriented x 3. left upper extremity weakness with 3 over 5 muscle strength. Speech dysarthria. Follows commands. PSYCHIATRIC: Mood normal. SKIN: No rash or lesions. - Constitutional Vitals: Temp Pulse Resp BP Pulse Ox 98.0 F 66 20 131/72 98 03/29/16 08:12 03/29/16 10:02 03/29/16 08:12 03/29/16 10:02 03/29/16 08:12 Plan Activity: advance as tolerated, no driving until cleared by PCP, fall precautions Diet: low fat, low salt Special Instructions: record daily BP diary, physical therapy, occupational therapy Follow up with: PRIMARY MD ADRIÁN [Primary Care Provider] - 3-5 Days ARABELLA HERRERA MD [Staff Physician] - 7 Days Prescriptions: Simvastatin [Zocor TAB] 40 mg PO QHS #30 tablet Aspirin EC [Aspirin Enteric Coated TAB] 325 mg PO QDAY #30 tablet Lisinopril [Zestril TAB] 40 mg PO QDAY #30 tablet
[2016-03-30] MEDS: LOVENOX SUB-Q SCH (09:19)
[2016-03-30] MEDS: ECOTRIN PO SCH (09:20)
[2016-03-30] MEDS: ZESTRIL PO SCH (09:20)
[2016-03-30 11:18] VITALS: BP 151/70
== END 2016-03-30 16:14 | disposition home or self-care (01) | DRG 65 ==
LOC: ED 20:17 → 4A 03-24 09:02
PROVIDERS: ADMIT Internal Medicine; ATTEND Internal Medicine
DX: I63.9 Cerebral infarction, unspecified (principal); I69.854 Hemiplegia and hemiparesis following other cerebrovascular disease affecting left non-dominant side; I16.0 Hypertensive urgency; I10 Essential (primary) hypertension; F17.200 Nicotine dependence, unspecified, uncomplicated; R47.01 Aphasia; F41.9 Anxiety disorder, unspecified; R47.81 Slurred speech; E78.5 Hyperlipidemia, unspecified; Z90.89 Acquired absence of other organs; Z82.49 Family history of ischemic heart disease and other diseases of the circulatory system; F10.10 Alcohol abuse, uncomplicated
CPT/HCPCS: 36415; 70450; 70544; 70551; 80048; 80061; 80074; 80307; 80320; 81001; 82140; 82550; 84443; 84484; 85027; 93005; 93010; 93306; 93880; 96374; G0480; J0360; J1650